=== PATIENT | male | born 1980 | race Caucasian/White ===

== ENCOUNTER → 2017-03-15 | Outpatient (CLI) | payer OTHER ==
--- NOTE | 2017-03-15 16:36 | PN ---
PROGRESS NOTE DATE OF SERVICE: 03/15/2017 36-year-old gentleman has been followed in [facility] for treatment of obstructive sleep apnea-hypopnea syndrome. The patient continued to use his CPAP equipment every night but at the present time he feels that his machine does not work. He does not feel that there is a pressure that generates any pressure. His [place] Sleepiness Scale today is 5. MEDICATIONS: Metoprolol, metformin, Januvia and glipizide, Losartan, clonidine, Chantix, [place], Motrin. PHYSICAL EXAM: Patient in no distress. BP 113/72, HR 74, RR 16, height 5 inches 4, weight 265, BMI 45.4, temperature 98.1. Oxygen saturation on room air 98%. Patient lost about 19 pounds since previous visit about 2 years ago. Oropharynx extremely low position of soft palate. Mallampati 4. Neck Supple, no JVD. Thyroid is not palpable. LUNGS Clear to percussion and to auscultation. Good air exchange. No wheezing or rhonchi. HEART S1, S2 regular. No murmurs, gallops, or rubs. ABDOMEN: Obese. Soft and nontender. Bowel sounds are present. No organomegaly appreciated. EXTREMITIES No clubbing or cyanosis. 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 Cranial nerves 2 to 7 intact. There is no fasciculation or atrophy. noted. No focal deficits observed. IMPRESSION: 1. Obstructive sleep apnea-hypopnea syndrome. At present the patient is on treatment with CPAP at 14 cm of water. He is trying to use his CPAP equipment every night but recently his machine does not work properly. 2. Obesity. 3. Diabetes mellitus. 4. Hypertension. 5. Shoulder problems secondary to rotator cuff. 6. The patient is in the process of stop chewing tobacco. PLAN: 1. To check if necessary to replace CPAP unit, CPAP pressure 14 cm of water. 2. Losing weight. 3. Sleep hygiene with regular time in bed for at least 8 hours. 4. No driving if feeling sleepiness. Thank you very much for allowing me to participate in the management of your patient. Sincerely, Michael Hager MD, PhD, FAASM Diplomat of [employer] [facility] [place] MMODL / IJN: [id number] /
== END | disposition home or self-care (01) ==
LOC: SLEEP 14:01
PROVIDERS: ATTEND Internal Medicine
DX: G47.33 Obstructive sleep apnea (adult) (pediatric) (principal); E11.9 Type 2 diabetes mellitus without complications; M25.9 Joint disorder, unspecified; I10 Essential (primary) hypertension; E66.9 Obesity, unspecified; Z99.89 Dependence on other enabling machines and devices; Z79.84 Long term (current) use of oral hypoglycemic drugs; Z79.1 Long term (current) use of non-steroidal anti-inflammatories (NSAID); Z79.891 Long term (current) use of opiate analgesic; Z79.899 Other long term (current) drug therapy; Z87.891 Personal history of nicotine dependence

== ENCOUNTER → 2018-11-21 | Outpatient (CLI) | payer OTHER ==
--- NOTE | 2018-11-21 16:52 | PN ---
PROGRESS NOTE DATE OF SERVICE: 11/21/2018 This patient is a 38-year-old gentleman who has been followed in the sleep center for treatment of obstructive sleep apnea-hypopnea syndrome. The patient received a new CPAP unit, and this is his first visit after he started to use the CPAP equipment. The patient is able to use CPAP equipment every night for the whole night. Reading from his machine showed leak from the mask is around 10 L/minute, which is acceptable. Apnea-hypopnea index in the range of 4, which is within normal range. No snoring with the machine. [place] Sleepiness Scale today is 5. MEDICATIONS: 1. Metoprolol. 2. Januvia. 3. Metformin. 4. Glipizide. 5. Losartan. 6. Clonidine. 7. Chantix. 8. [place]. 9. Motrin. PHYSICAL EXAMINATION: GENERAL: A pleasant patient in no distress. VITAL SIGNS: BP 141/89, HR 94, RR 16, height 5 feet 4 inches, weight 269, body mass index 46.1, temperature 98.0, oxygen saturation at room air 95%. HEENT: PERRLA, EOMI. Evaluation of oropharynx showed tongue protrudes midline. Extremely low position of soft palate. Mallampati IV. NECK: Supple. No JVD. Thyroid is not palpable. LUNGS: Clear to percussion and to auscultation. Good air exchange. No wheezing or rhonchi. HEART: S1, S2 regular. No murmurs, gallops or rubs. ABDOMEN: Obese. EXTREMITIES: No clubbing or cyanosis. 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 Cranial nerves 2 to 7 intact. There is no fasciculation or atrophy. noted. No focal deficits observed. IMPRESSION: 1. Obstructive sleep apnea-hypopnea syndrome. Patient demonstrated great compliance with treatment, benefitting from treatment. 2. Obesity. 3. Diabetes mellitus. 4. Hypertension. 5. Shoulder problems secondary to rotator cuff problems. 6. Patient stopped chewing tobacco one year ago. PLAN: 1. Patient will continue to use CPAP equipment every night for the whole night. 2. Losing weight. 3. Sleep hygiene with regular time in bed for at least 8 hours. 4. No driving if feeling any sleepiness. 5. Prescription for all necessary CPAP supplies, including mask, tube, filters. Thank you very much for allowing me to participate in the management of your patient. Sincerely, Michael Hager MD, PhD, FAASM Diplomat of [employer] [facility] [place] MMLEATHA / THOMPSON: [id number] /
== END | disposition home or self-care (01) ==
LOC: SLEEP 13:43
PROVIDERS: ATTEND Internal Medicine
DX: G47.33 Obstructive sleep apnea (adult) (pediatric) (principal); E66.9 Obesity, unspecified; E11.9 Type 2 diabetes mellitus without complications; I10 Essential (primary) hypertension; Z87.891 Personal history of nicotine dependence; Z68.42 Body mass index [BMI] 45.0-49.9, adult; Z99.89 Dependence on other enabling machines and devices; Z79.84 Long term (current) use of oral hypoglycemic drugs; Z79.891 Long term (current) use of opiate analgesic; Z79.1 Long term (current) use of non-steroidal anti-inflammatories (NSAID); Z79.899 Other long term (current) drug therapy

== ENCOUNTER 2019-04-27 12:19 | Emergency (ER) | payer OTHER ==
--- NOTE | 2019-04-27 13:10 | ED ---
Extremity Problem HPI - General Chief complaint: Extremity Problem,Nontraumatic Stated complaint: Right Knee Pain Source: patient, RN notes reviewed, old records reviewed Mode of arrival: ambulatory Limitations: no limitations - History of Present Illness Initial comments: Patient is a 38-year-old male who presents emergency room today with chronic right knee pain for one year. He states that he is now out of his chronic pain medication of [place] that he was getting from Dr. Zaidi for pain management. He states that he was on this for his shoulder. Patient states that he called his PCP who is sending him to see Dr. Matos for further pain management. Patient states he has not had any imaging or x-rays were followed up with orthopedic in regards to the right knee pain. Patient reports pain is worse with prolonged standing and going from a sitting to standing motion. Denies any clicking into the knee. - Related Data Home Medications Medication Instructions Recorded Confirmed Ibuprofen [Motrin] 800 mg PO Q8HR PRN 03/14/14 03/14/14 Losartan [Cozaar] 25 mg PO DAILY 03/14/14 03/14/14 Metoprolol Succinate (ER) [Toprol 50 mg PO DAILY 03/14/14 03/14/14 XL] oxyCODONE-APAP 5-325MG [Percocet 1 each PO Q6HR PRN 03/14/14 03/14/14 5-325 mg] Previous Rx's Medication Instructions Recorded Ibuprofen [Motrin] 600 mg PO Q8HR PRN #20 tab 04/27/19 Allergies Allergy/AdvReac Type Severity Reaction Status Date / Time tramadol Allergy Unknown Verified 04/27/19 12:23 Review of Systems ROS Statement: Those systems with pertinent positive or pertinent negative responses have been documented in the HPI. ROS Other: All systems not noted in ROS Statement are negative. Past Medical History Past Medical History: Diabetes Mellitus, Hypertension History of Any Multi-Drug Resistant Organisms: None Reported Past Surgical History: Orthopedic Surgery Past Psychological History: No Psychological Hx Reported Smoking Status: Never smoker Past Alcohol Use History: None Reported Past Drug Use History: None Reported General Exam - General Exam Comments Initial Comments: 38-year-old male. Alert and oriented. No distress. Limitations: no limitations General appearance: alert, in no apparent distress Head exam: Present: atraumatic, normocephalic, normal inspection Eye exam: Present: normal appearance, PERRL, EOMI. Absent: scleral icterus, conjunctival injection, periorbital swelling ENT exam: Present: normal exam, mucous membranes moist Neck exam: Present: normal inspection. Absent: tenderness, meningismus, lymphadenopathy Respiratory exam: Present: normal lung sounds bilaterally. Absent: respiratory distress, wheezes, rales, rhonchi, stridor Cardiovascular Exam: Present: regular rate, normal rhythm, normal heart sounds. Absent: systolic murmur, diastolic murmur, rubs, gallop, clicks GI/Abdominal exam: Present: soft, normal bowel sounds. Absent: distended, tenderness, guarding, rebound, rigid Extremities exam: Present: normal inspection, full ROM, normal capillary refill. Absent: tenderness, pedal edema, joint swelling, calf tenderness Right Upper Leg exam: Present: normal inspection, full ROM Knee exam: Present: normal inspection, full ROM, tenderness ( is tenderness over the medial joint.) Lower Leg exam: Present: normal inspection, full ROM Ankle exam: Present: normal inspection, full ROM Foot/Toe exam: Present: normal inspection, full ROM Neurovascular tendon exam: Present: no vascular compromise Gait: observed and normal Back exam: Present: normal inspection Neurological exam: Present: alert, oriented X3, CN II-XII intact Psychiatric exam: Present: normal affect, normal mood Skin exam: Present: warm, dry, intact, normal color. Absent: rash Course Vital Signs 04/27/19 12:20 Temperature 97.9 F Pulse Rate 104 H Respiratory 20 Rate Blood Pressure 157/82 O2 Sat by Pulse 99 Oximetry Medical Decision Making - Medical Decision Making 38-year-old male presents with chronic right knee pain worsening over the past year. Patient reports that he is now out of his chronic pain medication of [place]. Patient states he called his PCP and he is scheduled to have an upcoming with Dr. Matos for his chronic pain. This time x-ray of the knee shows no acute osseous abnormality. Consider further evaluation with MRI. I discussed these findings with Patient discussing needs to follow-up with or so. I discussed wrap anti-inflammatory medication at this time. Discussed return parameters. - Radiology Data Radiology results: report reviewed No acute osseous abnormality seen. If concern for internal derangement consider MRI. Disposition Clinical Impression: Chronic knee pain Disposition: HOME SELF-CARE Condition: Good Instructions (If sedation given, give patient instructions): Osteoarthritis (ED), Swollen Knee Joint (ED) Additional Instructions: Patient advised to follow-up with orthopedic. Take anti-inflammatory medicine rest ice and elevate the knee. He also uses wrap to help with depression. Take it off at night. Return to emergency department if any alarming signs or symptoms occur. Prescriptions: Ibuprofen [Motrin] 600 mg PO Q8HR PRN #20 tab PRN Reason: Pain Is patient prescribed a controlled substance at d/c from ED?: No Referrals: Doron Shepherd MD [Primary Care Provider] - 1-2 days Yvan Chowdhury MD [STAFF PHYSICIAN] - 1-2 days Time of Disposition: 13:38
--- NOTE | 2019-04-27 13:26 | XR ---
EXAMINATION TYPE: XR knee complete RT DATE OF EXAM: 04/27/2019 COMPARISON: NONE HISTORY: 38-year-old male pain worsening with ambulation TECHNIQUE: 3 views FINDINGS: Extensor mechanism is intact. No acute fracture, subluxation, or dislocation seen. No knee joint effusion. IMPRESSION: No acute osseous abnormality seen. If concern for internal derangement, consider MRI.
[2019-04-27] MEDS ORDERED: ACET/COD 300 MG/30 MG STARTER PACK 6 TAB BTL PO STA (13:36)
[2019-04-27 13:51] VITALS: BP 135/99; PULSE 94; RESP 18; TEMP 98
== END 2019-04-27 13:49 | disposition home or self-care (01) ==
LOC: EC 12:19
DX: M25.561 Pain in right knee (principal); G89.29 Other chronic pain; I10 Essential (primary) hypertension; Z88.5 Allergy status to narcotic agent; Z79.899 Other long term (current) drug therapy
CPT/HCPCS: 99284